=== PATIENT | female | born 1935 | race Caucasian/White ===

== ENCOUNTER 2016-05-11 14:07 | Emergency (ER) | payer MEDICARE, OTHER | END 2016-05-11 16:19 | disposition home or self-care (01) | LOC: ER 14:07 | DX: S52.571A Other intraarticular fracture of lower end of right radius, initial encounter for closed fracture (principal); W17.89XA Other fall from one level to another, initial encounter; Y92.009 Unspecified place in unspecified non-institutional (private) residence as the place of occurrence of the external cause; E07.9 Disorder of thyroid, unspecified; Z79.899 Other long term (current) drug therapy | CPT/HCPCS: 25605; 73100; 73110; 96374; 96375; 99070; 99152; 99283-25; 99285 ==